=== PATIENT | male | born 2000 | race Caucasian/White ===

== ENCOUNTER 2024-04-29 12:26 | Emergency (ER) | payer OTHER, SELFPAY ==
[2024-04-29 12:28] VITALS: BP 134/84; PULSE 77; RESP 16; TEMP 36.8; O2SAT 98; BMI 23.1
--- NOTE | 2024-04-29 12:39 | ED.VIS.DENTA ---
HPI History of Present Illness Chief Complaint: Dental Informant: patient Onset/Context/Timing Onset: Days (4) Context: Gradual Onset Timing: Continuous Quality: Aching, throbbing Location: Left upper molars Worsened by: Chewing Relieved by: - (Nothing) Associated Symptoms Assocated Symptom - Dental: Negative for fever, jaw swelling, face swelling, cold sensitivity or hot sensitivity Narrative Narrative: Patient presents with left upper dental pain that has been getting worse over the past 4 days. Patient states it is gradually getting worse. Patient describes it as aching and throbbing. Patient states it is over the left upper posterior molars. Patient states his pain is worse with chewing. Patient states he has not made an appointment with a dentist yet. Patient denies any fevers or chills. Patient denies any hot or cold sensitivity. Patient denies any jaw or facial swelling. PFSH PFSH Medical History no medical history no medical history Home Medications ?Medication ?Instructions ?Recorded ?Last Taken ?Type penicillin V potassium 500 mg 500 mg PO 4X/DAY #40 tabs 04/29/24 Unknown Rx tablet Allergy/AdvReac Type Severity Reaction Status Date / Time No Known Allergies Allergy Verified 04/29/24 12:28 Surgical History (Updated 04/29/24 @ 13:[address] Tom Gauthier DO) Hx of removal of cyst Social History (Updated 04/29/24 @ 13:[address] Tom Gauthier DO) Electronic Cigarette Use: with nicotine ROS ROS ED Constitutional Constitutional ED: Denies chills or fever(s) Eyes Eyes: Denies blurry vision or change in vision ENT ENT ED: Denies rhinorrhea or sore throat Cardiovascular Cardiovascular: Denies chest pain or palpitations Respiratory/Chest Respiratory/Chest: Denies cough or dyspnea Gastrointestinal Gastrointestinal: Denies nausea or vomiting Genitourinary Genitourinary ED: Denies dysuria or hematuria Musculoskeletal Musculoskeletal: Denies back pain or neck pain Integumentary Denies abscess or rash Neurologic Neurologic: Denies headache(s) or weakness Allergic/Immunologic Allergic/Immunologic ED: Denies mouth swelling or urticaria EXAM Physical Exam Const Vital Signs: 04/29/24 12:28 04/29/24 13:51 Temperature 98.2 F 98.2 F Temperature Source Oral Pulse Rate 77 77 Respiratory Rate 16 16 Blood Pressure 134/84 H 134/84 H Blood Pressure Mean 100 100 Pulse Ox 98 98 Oxygen Delivery Method Room Air Positive well nourished and well developed General Appearance ED: well developed and NAD HEENT HEENT Narrative: There is tenderness over the left upper second molar. There is a dental carry over this tooth. There is no gingival edema around the second molar and first molar. There is no fluctuance. There is no discharge or drainage. There is no evidence of any abscess. Oral mucosa is pink and moist. Oropharynx is clear. Airway is patent. Mouth ED: Yes oral and palatal mucosa normal Mouth: oral and palatal mucosa normal Teeth and Gingiva: caries and gingiva abnormal Positive for gingival edema Throat: posterior oropharynx normal Neck supple and no JVD General: Negative for anterior neck swelling, tenderness or submandibular swelling Neuro oriented x3, CN's II-XII intact bilaterally, moves all extremities, no focal motor deficits and no sensory deficits noted Sensorium / Orientation: alert Motor Exam: strength 5/5 throughout Psych mental status grossly normal MDM MDM MDM Narrative Medical decision making narrative: Nicotine cessation was discussed. Patient was advised that this is most likely infected dental caries. Patient was given a dose of Pen-Vee K and tramadol here. Patient was given a prescription for Pen-Vee K. Patient was instructed to follow-up with a dentist in 3 to 5 days. Patient was instructed to take Tylenol or ibuprofen as needed for pain. Patient was instructed to return if worse in any way. Patient understood and was agreeable with plan. All questions were answered. Discharge Plan Triage Chief Complaint: Dental ED Provider: Tom Gauthier Dx/Rx/DC Orders Clinical Impression: Infected dental caries, Nicotine vapor product user Instructions: ED Dental Pain, ED Dental Cavity Prescriptions: New penicillin V potassium 500 mg tablet 500 mg PO 4X/DAY Qty: 40 0RF Primary Care Provider: Esme Celeste Referrals: Ambar Diamond MD [Non-Staff] - 5-7 Days Print Language: Brazilian Disposition Disposition: Home, Self Care Discharge Date/Time: 04/29/24 13:52
[2024-04-29] MEDS: Penicillin Vk 250 MG Tablet 500 MG PO (13:42)
[2024-04-29] MEDS: traMADol 50 MG Tablet PO (13:46)
[2024-04-29 13:51] VITALS: BP 134/84; PULSE 77; RESP 16; TEMP 36.8; O2SAT 98
== END 2024-04-29 13:52 | disposition home or self-care (01) ==
PROVIDERS: Emergency Provider Emergency Medicine; PCP Family Medicine; Visit Provider Emergency Medicine
DX: K04.7 Periapical abscess without sinus (principal); K02.9 Dental caries, unspecified; F17.290 Nicotine dependence, other tobacco product, uncomplicated
CPT/HCPCS: 99283